=== PATIENT | male | born 1990 | race African-American/Black ===

== ENCOUNTER 2023-06-15 03:50 | Emergency (ER) | payer BC, SELFPAY ==
[2023-06-15 03:51] VITALS: BP 178/100
[2023-06-15 04:13] VITALS: BMI 40.6
[2023-06-15] MEDS: MAALOX 50 PO (04:18)
[2023-06-15 04:20] VITALS: BP 140/107
--- NOTE | 2023-06-15 04:26 | ED.GENMED ---
History of Present Illness
General
Chief Complaint: Cardiac Symptoms
Source: patient and previous hospital records (ED visit July 2018 for very similar chest pain complaint. Unremarkable ED evaluation at that time. Diagnosed with costochondritis.)
Exam Limitations: none
Time Seen by Provider: 06/15/23 04:01
Nursing documentation reviewed up to this point in time: agreed with
Travel History
Have you had any contact with someone who has COVID-19?: No
Do you have any symptoms of coronavirus? Fever > 100 degrees, chills, cough, shortness of breath, sore throat, loss of taste or smell, muscle aches, or headache?: No
History of Present Illness
History of Present Illness:
This is a 33-year-old gentleman with no significant past medical history save for GERD who complains of left upper chest pain that began 3 days ago. Left upper chest pain has been intermittent over the past 3 days, worse with movement of his left
arm, worse with movement of his trunk. He denies shortness of breath, pain is not worse with deep inspiration, no cough. Left upper chest pain has been persistent since yesterday evening and tonight seemed worse with intermittent palpitations
feeling like his heart was pounding and intermittently racing.
He denies heavy lifting nor injury. No recent URI. No leg pain or swelling. No recent lengthy travel.
Evaluated in this ED July 2018 with very similar left-sided chest pain, similarly worse with movement, movement of his left arm. Unremarkable ED evaluation at that time including EKG, laboratory studies, diagnosed with costochondritis.
He takes no medicines on a daily basis and has not been taking anything for chest discomfort.
Lifelong non-smoker.
No family history of coronary artery disease nor thromboembolism.
Past History
Past History
ED Past Medical History: GERD
ED Past Surgical History: None
Patient has exhibited threatening behavior?: No
Social History
Tobacco: Non-smoker
Alcohol: None
Drug: None
Personal: Single
Living: with family
Employment: Employed
Family History
Family History: Other (Noncontributory); Negative Early CAD or CAD
Phy Exam
Physical Exam
Physical Exam:
GENERAL: Alert , in no apparent distress. 33-year-old gentleman appears his stated age, awake and alert, pleasant, appears in no acute distress. Easily communicative.
EYE: anicteric
NECK: Supple, nontender, no meningismus, no significant adenopathy.
ENT: oral mucosa is moist. No rhinorrhea.
CARDIAC: Regular rate and rhythm. no murmur. Moderate tenderness to palpation left parasternal region. Palpation seems to exactly reproduce patient's pain complaint.
LUNGS: Clear breath sounds bilaterally, no acute respiratory distress, no wheezes/rales/rhonchi
ABDOMEN: Soft, nondistended, without focal tenderness, no r/g, normoactive BS.
NEUROLOGICAL: Alert and oriented x3, no focal neuro deficits. Gait is wade and steady.
SKIN: Warm and dry, normal color, skin intact. No rash.
MUSCULOSKELETAL: No C/C/E. peripheral pulses are full and equal b/l. No palpable tenderness.
PSYCH: Normal and appropriate interaction.
Scores
Heart Score for Chest Pain Patients
STEMI patient?: No
History: Slightly or Non-Suspicious
ECG: Normal
Age: </= 45 years
Risk Factors: No Risk Factors
Troponin: </= Normal Limit
Heart Score for Chest Pain Patients: 0
Heart Score Risk: 2.5% MACE over next 6 weeks
Course
Orders/Labs/Results
Orders:
Orders
06/15/23 03:55
Electrocardiogram (*1) Urgent
Reason for Study: Chest Pain
EKG- Treatment ONCE
06/15/23 04:10
Mag Hydrox/Al Hydrox/Simeth [Maalox] 30 ml Phenobarb/Hyoscy/Atropine/Scop [] 10 ml Viscous Lidocaine 2% [Xylocaine Viscous Cup] 10 ml PO NOW
04/22/24 04:12
Complete Blood Count/With Diff Urgent
Comprehensive Metabolic Panel Urgent
Troponin I Urgent
06/15/23 04:17
Mag Hydrox/Al Hydrox/Simeth [Maalox] 30 ml .ROUTE .STK-MED ONE
Phenobarb/Hyoscy/Atropine/Scop [] 10 ml .ROUTE .STK-MED ONE
Viscous Lidocaine 2% [Xylocaine Viscous Cup] 15 ml .ROUTE .STK-MED ONE
06/15/23 05:03
Ketorolac [Toradol] 30 mg IV NOW STA
Abnormal Lab Results
06/15/23
04:12
MCV 74.3 L fL
(80.0-94.0)
MCH 25.7 L pg
(27.0-31.0)
Abs Immat Gran (auto) 0.1 H 10^3/uL
(0-0.05)
Immature Gran % 0.6 H %
(0-0.5)
Chloride 108 H mmol/L
(98-107)
Glucose 101 H mg/dl
(70-99)
06/15/23 04:12
06/15/23 04:12
Vital Signs
Initial and Last Documented VS:
Initial Vital Signs
Temp Pulse Resp BP Pulse Ox
98 F 86 22 178/100 97
06/15/23 03:51 06/15/23 03:51 06/15/23 03:51 06/15/23 03:51 06/15/23 03:51
Last Documented Vital Signs
Temp Pulse Resp BP Pulse Ox
98 F 86 22 178/100 97
06/15/23 03:51 06/15/23 03:51 06/15/23 03:51 06/15/23 03:51 06/15/23 03:51
MDM/Problems Addressed
Differential Diagnosis Includes:
Concern for musculoskeletal chest pain/costochondritis, GERD, ACS is less likely. No risk factors for thromboembolism.
Patient noted to be moderately hypertensive, repeat blood pressure upon my evaluation has improved to 140/90. Similar hypertension noted 2019, then normalized upon recheck.
EKG is reassuring, unremarkable and unchanged from previous.
Will check labs including troponin.
Will trial a GI cocktail for potential GERD and if this is unsuccessful we will trial a dose of Toradol.
Chronic conditions affecting care: Other (GERD)
*Pulse Oximetry
Patient hypoxic: no
*EKG
Interpreted by ED Provider?: Yes
Interpretation: normal
Comparison EKG: no changes (Unchanged from previous July 2018)
Rate: normal
Rhythm: sinus
[place]: normal axis
Interval: normal interval
QRS Pattern: normal QRS
Ischemia: no ischemia
*[employer] Interpretation
Rate: normal
Interpretation: normal
Rhythm: sinus
*Critical Care Note
Total Time (30-74mins, 75-104mins- exclusive of procedures): Not Applicable
Update Note
Update Note:
06/15/2023 0605 AM
Labs are unremarkable including normal troponin. With ongoing/constant chest pain since 5 PM yesterday, negative troponin, unremarkable EKG, ACS is unlikely.
No improvement in pain after GI cocktail and patient continues to note increased left upper chest pain with movement of his left arm, rotation of his trunk which clearly appears musculoskeletal in nature thus a trial of IV Toradol given with
moderate improvement in pain.
I suspect left chest wall pain/costochondritis as cause for his chest discomfort.
Recommend a course of ibuprofen to be taken with food to protect the stomach. Local heat, avoid heavy lifting and prompt follow-up with PCP.
ED Attending Note
-
Portions of this chart may have been created with voice recognition software.� Occasional wrong word or��sound alike� substitutions may have occurred due to the inherent limitations of voice recognition software.
Discharge Plan
Departure
Patient Disposition: Home (Routine Discharge)
Date of Disposition: 06/15/23
Time of Disposition: 06:07
Patient with high blood pressure during this ER visit?: Yes
Condition: Good
Discharge Problem:
Acute costochondritis
Instructions: Costochondritis (DC), BLOOD PRESSURE
Prescriptions:
New
ibuprofen 800 mg tablet
800 mg PO QIDPRN PRN (Reason: pain, fever) Qty: 30 0RF
No Action
[id number] 1 DROP drops,suspension
4 drp otic (ear) TID Qty: 1 0RF
Referrals:
NONE,* [Family Provider] - Call in 1-3 days for appt
Interventions
Interventions:
*Risk Screen - Suicide Last Done: 06/15/23 04:14
*General Assessment Last Done: 06/15/23 04:14
*Neglect/Abuse Screening Last Done: 06/15/23 04:14
ED- Fall Risk Assessment Last Done: 06/15/23 05:22
*ED COVID-19 Vaccine History Last Done: 06/15/23 04:14
ED- Pulmonary Assessment Last Done: 06/15/23 05:22
ED- Cardiac Assessment Last Done: 06/15/23 05:22
Discharge Date and Time
Print Language: CHINESE
[2023-06-15 04:28] LABS: % Basophils 0.7 % (0-2); % Eosinophils 1.7 % (0-6); % Immature Granulocytes 0.6 % (0-0.5); % Lymphocytes 29.1 % (20.5-51.1); % Monocytes 7.3 % (1.7-9.3); % Neutrophils 60.6 % (42.2-75.2); Absolute Basophils 0.1 10^3/uL (0-0.2); Absolute Eosinophils 0.1 10^3/uL (0-0.7); Absolute Immature Granulocytes 0.1 10^3/uL (0-0.05); Absolute Lymphocytes 2.4 10^3/uL (1.2-3.4); Absolute Monocytes 0.6 10^3/uL (0.1-0.6); Absolute Neutrophils 5.1 10^3/uL (1.4-6.5); Hematocrit 40.1 % (39.0-52.0); Hemoglobin 13.9 g/dL (13.0-18.0); Mean Corp Hgb Conc. 34.7 g/dL (33.0-37.0); Mean Corpuscular Hgb 25.7 pg (27.0-31.0); Mean Corpuscular Volume 74.3 fL (80.0-94.0); Mean Platelet Volume 10.3 fL (7.4-10.4); Nucleated Red Blood Cells % 0 % (-); Platelet Count 323 10^3/uL (130-400); Red Cell Dist. Width 13.6 % (11.5-14.5); White Blood Cell Count 8.3 10^3/uL (4.8-10.8)
[2023-06-15 04:46] LABS: ALT (SGPT) 30 U/L (0-50); AST (SGOT) 23 U/L (17-59); Albumin 4.2 g/dl (3.5-5.0); Alkaline Phosphatase 96 U/L (38-126); Blood Urea Nitrogen 17 mg/dl (9-20); Calcium 9.7 mg/dl (8.4-10.2); Carbon Dioxide 25 mmol/L (22-30); Chloride 108 mmol/L (98-107); Estimated Creatinine Clearance > 125 ml/min; Glucose 101 mg/dl (70-99); Potassium 4.3 mmol/L (3.5-5.1); Sodium 138 mmol/L (135-145); Total Bilirubin 0.3 mg/dl (0.2-1.3); Total Protein 7.4 g/dl (6.3-8.2); eGFR > 60.00
[2023-06-15 04:57] LABS: Troponin I 0.032 ng/ml
[2023-06-15 05:00] VITALS: BP 138/101
[2023-06-15] MEDS: TORADOL 30 MG IV (05:28)
[2023-06-15 06:00] VITALS: BP 141/99
== END 2023-06-15 06:43 | disposition home or self-care (01) ==
LOC: EMR 03:50
PROVIDERS: EMERGENCY PHYSICIAN Emergency Medicine
DX: M94.0 Chondrocostal junction syndrome [Tietze] (principal); R00.2 Palpitations; R03.0 Elevated blood-pressure reading, without diagnosis of hypertension; K21.9 Gastro-esophageal reflux disease without esophagitis
CPT/HCPCS: 99284; 96374; 80053; 84484; 85025; 93005

== ENCOUNTER 2024-05-11 10:39 | Emergency (ER) | payer SELFPAY ==
[2024-05-11 10:40] VITALS: BMI 41.2
[2024-05-11 10:46] VITALS: BP 184/117
[2024-05-11 11:11] LABS: % Basophils 0.7 % (0-2); % Eosinophils 1.7 % (0-6); % Immature Granulocytes 0.7 % (0-0.5); % Lymphocytes 28.3 % (20.5-51.1); % Monocytes 9.1 % (1.7-9.3); % Neutrophils 59.5 % (42.2-75.2); Absolute Basophils 0.1 10^3/uL (0-0.2); Absolute Eosinophils 0.2 10^3/uL (0-0.7); Absolute Immature Granulocytes 0.1 10^3/uL (0-0.05); Absolute Lymphocytes 2.5 10^3/uL (1.2-3.4); Absolute Monocytes 0.8 10^3/uL (0.1-0.6); Absolute Neutrophils 5.2 10^3/uL (1.4-6.5); Hematocrit 42.3 % (39.0-52.0); Hemoglobin 14.7 g/dL (13.0-18.0); Mean Corp Hgb Conc. 34.8 g/dL (33.0-37.0); Mean Corpuscular Hgb 26.1 pg (27.0-31.0); Mean Platelet Volume 10.2 fL (7.4-10.4); Nucleated Red Blood Cells % 0 % (-); Platelet Count 320 10^3/uL (130-400); Red Blood Cell Count 5.64 10^6/uL (4.70-6.10); Red Cell Dist. Width 14.1 % (11.5-14.5); White Blood Cell Count 8.7 10^3/uL (4.8-10.8)
[2024-05-11 11:12] VITALS: BP 172/110
[2024-05-11 11:19] LABS: ALT (SGPT) 41 U/L (0-50); AST (SGOT) 23 U/L (17-59); Albumin 4.2 g/dl (3.5-5.0); Alkaline Phosphatase 90 U/L (38-126); Blood Urea Nitrogen 14 mg/dl (9-20); Calcium 9.7 mg/dl (8.4-10.2); Carbon Dioxide 25 mmol/L (22-30); Chloride 108 mmol/L (98-107); Estimated Creatinine Clearance > 125 ml/min; Glucose 117 mg/dl (70-99); Potassium 4.1 mmol/L (3.5-5.1); Sodium 140 mmol/L (135-145); Total Bilirubin 0.4 mg/dl (0.2-1.3); Total Protein 7.5 g/dl (6.3-8.2); eGFR > 60.00
[2024-05-11 11:26] VITALS: BP 176/126
--- NOTE | 2024-05-11 11:28 | ED.GENMED ---
History of Present Illness
General
Chief Complaint: Cardiac Symptoms
Source: patient
Exam Limitations: none
Time Seen by Provider: 05/11/24 11:16
Nursing documentation reviewed up to this point in time: agreed with
History of Present Illness
History of Present Illness:
This is a 34-year-old male with a past medical history of GERD who presents emergency department today with concerns of palpitations that woke him from sleep this morning. 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
this morning, staff at his job ordered food and ordered him a lemonade. Patient states that he drank a large lemonade and he later found out that the lemonade had a lot of caffeine added to it at [facility] [place]. Patient states he normally does not drink a
lot of caffeine. Patient states that he also felt jittery and felt slightly short of breath. Patient states that since then his symptoms have improved but he still feels a sensation of palpitations in his chest. He states that he had a transient
episode of chest pressure as well. He denies any history of alcohol or tobacco use. He has no personal or family history of cardiac disease. He denies any recent long distance travel, any pain or swelling in his legs. Patient states that his
brother had a similar episode to this a few days ago and was diagnosed with overactive thyroid. Patient denies nausea, vomiting, abdominal pain.
Past History
Past History
ED Past Medical History: GERD
ED Past Surgical History: None
Patient has exhibited threatening behavior?: No
Social History
Tobacco: Non-smoker
Alcohol: None
Drug: None
Personal: Single
Living: with family
Employment: Employed
Family History
Family History: Other (Noncontributory); Negative Early CAD or CAD
Review of Systems
Review of Systems
All Other Systems: ROS reviewed and negative except as documented in HPI and ROS
Phy Exam
Physical Exam
Physical Exam:
General: Patient is well appearing and in no acute distress; non-toxic
Skin: Warm and dry, no rashes or lesions
Head: Normocephalic, atraumatic
Eyes: Sclera non-icteric. EOMs intact.
Cardiac: Tachycardia noted otherwise regular rhythm, no murmurs, no tenderness to palpation over the external chest wall
Peripheral Vascular: No lower extremity swelling or edema
Pulm: Normal respiratory effort, no wheezes, rales, or rhonchi
Neuro: CN II-XII intact, no focal neurologic deficits.
Psychiatric: Appropriate mood and affect.
Course
Orders/Labs/Results
Orders:
Orders
05/11/24 10:41
Electrocardiogram (*1) Urgent
Reason for Study: Vertigo / Dizzy
Other Reason for Exam: chest discomfort
EKG- Treatment ONCE
05/11/24 10:50
Chest [CR Chest - 2 Views ] Urgent
Comment:
Reason For Exam: SOB
05/11/24 10:59
Complete Blood Count/With Diff Urgent
Comprehensive Metabolic Panel Urgent
Magnesium Urgent
Comment: ADD
TSH Reflex To Free T4 Urgent
Comment: ADD
Troponin I Urgent
05/11/24 11:43
0.9% Sodium Chloride 500 ml [Nss] 500 ml IV BOLUS
05/11/24 11:45
Add On- LAB Urgent
Tests Added?: TSH reflex to T4
05/11/24 11:46
Add On- LAB Urgent
Tests Added?: magnesium
05/11/24 11:50
D-Dimer Urgent
05/11/24 11:59
0.9% Sodium Chloride 1000 ml [Nss] 500 ml IV BOLUS
Abnormal Lab Results
05/11/24
10:59
MCV 75.0 L fL
(80.0-94.0)
MCH 26.1 L pg
(27.0-31.0)
Abs Immat Gran (auto) 0.1 H 10^3/uL
(0-0.05)
Absolute Monos (auto) 0.8 H 10^3/uL
(0.1-0.6)
Immature Gran % 0.7 H %
(0-0.5)
Chloride 108 H mmol/L
(98-107)
Glucose 117 H mg/dl
(70-99)
05/11/24 10:59
05/11/24 10:59
Vital Signs
Pulse: 92
Blood pressure: 150/100
Initial and Last Documented VS:
Initial Vital Signs
Temp Pulse Resp BP Pulse Ox
98.5 F 102 18 184/117 97
05/11/24 10:46 05/11/24 10:46 05/11/24 10:46 05/11/24 10:46 05/11/24 10:46
Last Documented Vital Signs
Temp Pulse Resp BP Pulse Ox
98.5 F 92 17 150/100 97
05/11/24 10:46 05/11/24 15:44 05/11/24 13:00 05/11/24 15:44 05/11/24 13:00
MDM/Problems Addressed
Differential Diagnosis Includes:
ddx include caffeine side affects, atrial tachycardia, afib, electrolyte derangement, pneumonia, ACS
MDM/Problems Addressed:
34-year-old male presents emergency department today with concerns of palpitations. Woke him up from sleep today, symptoms started few hours after taking a caffeinated drink. He also has associated intermittent shortness of breath. States that
his symptoms have largely improved but he still feels a sensation of palpitations. He was sent for chest x-ray which reveals no acute cardiopulmonary process. His troponin was undetectable. His TSH was normal. His electrolytes are normal. He is
not anemic. His D-dimer is normal. Suspect tachycardia likely related to large dose of caffeine after his production shift supervisor. Patient was given IV fluids which subsequently brought on his heart rate and his blood pressure did come back down a bit.
Patient is no longer feeling a sensation of palpitations. In light of prolonged palpitations episode earlier today, I did recommend patient following up with a learning engineer for potential Holter monitoring. Patient states that he has no history of
high blood pressure however on review of his visits here it appears that patient is always hypertensive during his emergency department visits. We did discuss how it is important that blood pressure needs to be manage I did discuss that patient
should see his primary care provider regarding this. Patient expressed understanding. Patient stable for discharge.
Chronic conditions affecting care:
GERD
*Pulse Oximetry
Patient hypoxic: no
*EKG
Interpreted by ED Provider?: Yes
EKG Intrepretation Date: 05/11/24
Interpretation: abnormal
Comparison EKG: no changes
Heart Rate: 104
Rate: tachycardiac
Rhythm: sinus
[place]: normal axis
*Critical Care Note
Total Time (30-74mins, 75-104mins- exclusive of procedures): Not Applicable
Data Reviewed
Review of Other/Old Records Reveals: Records (Reviewed ER physician documentation from 06/15/2023 patient is seen for acute costochondritis)
Source: patient
Patient Management
Escalation/DeEscalation of care consider admission/obs:
Admit not indicated, patient stable for discharge
ED Attending Note
-
Portions of this chart may have been created with voice recognition software.� Occasional wrong word or��sound alike� substitutions may have occurred due to the inherent limitations of voice recognition software.
Discharge Plan
Departure
Patient Disposition: Home (Routine Discharge)
Date of Disposition: 05/11/24
Time of Disposition: 13:00
Patient with high blood pressure during this ER visit?: Yes
Condition: Good
Discharge Problem:
Sinus tachycardia, Heart palpitations
Instructions: Sinus Tachycardia (DC), BLOOD PRESSURE
Prescriptions:
No Action
[id number] 1 DROP drops,suspension
4 drp otic (ear) TID Qty: 1 0RF
ibuprofen 800 mg tablet
800 mg PO QIDPRN PRN (Reason: pain, fever) Qty: 30 0RF
Referrals:
Roberto Poe MD [Active] - Call in 1-3 days for appt
UNKNOWN - PT DOES,NOT KNOW [Family Provider] -
Activity Restrictions/Additional Instructions:
Please follow-up with your primary care provider regarding your elevated blood pressure today. If this remains elevated, you may need to be started on a blood pressure medication.
PLEASE RETURN TO THE EMERGENCY DEPARTMENT SHOULD YOU DEVELOP CHEST PAIN, SHORTNESS OF BREATH, LIGHTHEADEDNESS, DIZZINESS, LOSS OF CONSCIOUSNESS, OR ANY OTHER SIGNS OR SYMPTOMS WORRISOME TO YOU.
Please call attached number to schedule follow-up appointment cardiology to address your prolonged episode of palpitations.
Interventions
Interventions:
*Risk Screen - Suicide Last Done: 05/11/24 10:46
*General Assessment Last Done: 05/11/24 10:46
*Neglect/Abuse Screening Last Done: 05/11/24 10:46
*ED- Fall Risk Assessment Last Done: 05/11/24 11:10
*Nursing Disposition Last Done: 05/11/24 13:04
ED- Pulmonary Assessment Last Done: 05/11/24 11:10
ED- Cardiac Assessment Last Done: 05/11/24 11:10
Discharge Date and Time
Discharge Date/Time: 05/11/24 13:11
Print Language: TELUGU
[2024-05-11 11:30] LABS: Troponin I 0.014 ng/ml
[2024-05-11 11:41] VITALS: BP 180/126
[2024-05-11] MEDS: NSS 500 IV ×2 (11:52→12:24)
[2024-05-11 12:00] VITALS: BP 151/105
[2024-05-11 12:30] LABS: D-Dimer 0.33 ug/mlFEU (0.00-0.50)
[2024-05-11 12:46] VITALS: BP 153/103
[2024-05-11 13:05] LABS: Magnesium 1.8 mg/dl (1.6-2.3)
[2024-05-11 13:42] LABS: TSH Reflex To Free T4 4.58 uIU/ml (0.47-4.68)
== END 2024-05-11 13:11 | disposition home or self-care (01) ==
LOC: EMR 10:39
PROVIDERS: Physician Assistant; EMERGENCY PHYSICIAN Emergency Medicine
DX: R00.0 Tachycardia, unspecified (principal); R00.2 Palpitations; R07.89 Other chest pain; K21.9 Gastro-esophageal reflux disease without esophagitis; R03.0 Elevated blood-pressure reading, without diagnosis of hypertension
CPT/HCPCS: 99285; 96360; 71046; 80053; 83735; 84443; 84484; 85025; 85379; 93005

== ENCOUNTER 2024-08-25 02:28 | Emergency (ER) | payer SELFPAY ==
[2024-08-25 02:43] VITALS: BP 160/113
--- NOTE | 2024-08-25 02:58 | ED.GENMED ---
History of Present Illness
General
Chief Complaint: Breathing Problem
Source: patient
Exam Limitations: none
Time Seen by Provider: 08/25/24 02:49
Nursing documentation reviewed up to this point in time: agreed with
History of Present Illness
History of Present Illness:
This is a 34-year-old gentleman who has history of GERD, takes no medicines on a daily basis who presents with 2-week history of dry hacking cough, mild shortness of breath, mild nasal congestion. He has not had a fever. No chest pain, no nausea
nor vomiting, no sore throat. No known close contacts with similar symptoms. No recent travel.
He had a telehealth visit last week, August 17, and was prescribed Z-Jonathan as well as 5-day course of prednisone 50 mg daily. Despite completing these 3 days ago he has had no relief of symptoms.
COVID test was negative last week.
No improvement in cough with Mucinex, Robitussin.
He admits to cough throughout the day but worse at nighttime.
Past History
Past History
ED Past Medical History: GERD
ED Past Surgical History: None
Patient has exhibited threatening behavior?: No
Social History
Tobacco: Non-smoker
Alcohol: None
Drug: None
Personal: Single
Living: with family
Employment: Employed
Family History
Family History: Other (Noncontributory); Negative Early CAD or CAD
Phy Exam
Physical Exam
Physical Exam:
GENERAL: 34-year-old overweight gentleman appears his stated age. Bright and alert, pleasant, appears in no acute distress. Frequent hacking nonproductive cough is noted. Able to speak in full sentences. No respiratory distress. Sitting upright
typing on his laptop computer.
EYE: anicteric
NECK: Supple, nontender, no meningismus, no significant adenopathy. No JVD.
ENT: posterior pharynx is without injection, scant clear postnasal drip is noted, oral mucosa is moist. TM clear b/l, nares patent.
CARDIAC: Regular rate and rhythm. no murmur.
LUNGS: Clear breath sounds bilaterally, no acute respiratory distress, no wheezes/rales/rhonchi. Frequent dry hacking cough is noted.
ABDOMEN: Soft, nondistended, without focal tenderness
NEUROLOGICAL: Alert and oriented x3, no focal neuro deficits. Gait is steady.
SKIN: Warm and dry, normal color, skin intact. No rash.
MUSCULOSKELETAL: No C/C/E. peripheral pulses are full and equal b/l. No palpable tenderness.
PSYCH: Normal and appropriate interaction.
Scores
Heart Failure Risk
Heart Failure Risk Score: Not Applicable
Course
Orders/Labs/Results
Orders:
Orders
08/25/24 02:50
CR Chest - 2 Views Urgent
Comment:
Reason For Exam: cough, SOB x 2 weeks
08/25/24 02:58
Benzonatate [Tessalon Perles] 200 mg PO NOW STA
Ipratropium/Albuterol Sulfate [Duoneb] 3 ml INH R NOW STA
Vital Signs
Initial and Last Documented VS:
Initial Vital Signs
Temp Pulse Resp BP Pulse Ox
99 F 86 20 160/11 98
08/25/24 02:43 08/25/24 02:43 08/25/24 02:43 08/25/24 02:43 08/25/24 02:43
Last Documented Vital Signs
Temp Pulse Resp BP Pulse Ox
99 F 86 20 148/90 98
08/25/24 02:43 08/25/24 02:43 08/25/24 02:43 08/25/24 03:13 08/25/24 03:15
MDM/Problems Addressed
Differential Diagnosis Includes:
Acute URI/bronchitis, concern for occult pneumonia, reactive airway disease.
Nothing in history nor exam to suggest CHF.
No complaints of chest pain, no history of CAD nor history of thromboembolism.
Exacerbation of GERD is less likely especially with prolonged symptoms.
COVID testing -1-week ago. No indication to repeat.
Will check chest x-ray and will trial DuoNeb nebulizer.
Will give a dose of Tessalon for cough as well.
Patient noted to be moderately hypertensive. Similar elevated blood pressure readings on previous ED visits. Patient states his blood pressure is generally normal upon recheck at PCP.
Previous labs reviewed from April of this year as well as May 2023. All unremarkable.
At this point no indication for laboratory studies.
*Radiology
Radiology exam reviewed: preliminary read by ED provider (Chest x-ray is unremarkable. Clear lung pineda. Normal heart size. Unchanged from previous April 2024.)
*Pulse Oximetry
SaO2: 98
Oxygen Mode of Delivery: Room air
Patient hypoxic: no
*Critical Care Note
Total Time (30-74mins, 75-104mins- exclusive of procedures): Not Applicable
Update Note
Update Note:
03:50
Cough is markedly improved after nebulizer treatment and a dose of Tessalon.
He does continue with intermittent brief cough but no shortness of breath and lungs remain clear to auscultation.
Chest x-ray is unremarkable. Clear lung pineda.
At this point no indication for further antibiotic nor additional prednisone.
Will prescribe Tessalon pearls for as needed cough as well as albuterol inhaler.
Discussed importance of staying well-hydrated on a daily basis.
Elevate head of bed as well as utilization of humidifier versus vaporizer at nighttime to assist with cough suppression.
Prompt follow-up with PCP for recheck.
ED Attending Note
-
Portions of this chart may have been created with voice recognition software.� Occasional wrong word or��sound alike� substitutions may have occurred due to the inherent limitations of voice recognition software.
Discharge Plan
Departure
Patient Disposition: Home (Routine Discharge)
Date of Disposition: 08/25/24
Time of Disposition: 03:50
Patient with high blood pressure during this ER visit?: Yes
Condition: Good
Discharge Problem:
Acute bronchitis
Instructions: Acute Bronchitis, Adult (DC), Cough, Adult (DC), BLOOD PRESSURE
Prescriptions:
New
benzonatate 200 mg capsule
200 mg PO TID PRN (Reason: cough) Qty: 30 0RF
albuterol sulfate 90 mcg/actuation aerosol powdr breath activated
2 inh inhalation QIDPRN PRN (Reason: shortness of breath or cough) Qty: 1 0RF
No Action
[id number]-[id number] 1 DROP drops,suspension
4 drp otic (ear) TID Qty: 1 0RF
ibuprofen 800 mg tablet
800 mg PO QIDPRN PRN (Reason: pain, fever) Qty: 30 0RF
Referrals:
UNKNOWN - PT DOES,NOT KNOW [Family Provider]
Activity Restrictions/Additional Instructions:
Stay well-hydrated on a daily basis.
Elevate head of bed at nighttime as well as use cool mist versus steam vaporizer at nighttime to help with cough.
Follow-up with your primary care physician next week for recheck.
Interventions
Interventions:
*Risk Screen - Suicide Last Done: 08/25/24 02:43
*General Assessment Last Done: 08/25/24 02:43
*Neglect/Abuse Screening Last Done: 08/25/24 02:43
*ED- Fall Risk Assessment Last Done: 08/25/24 02:43
*ED COVID-19 Vaccine History Last Done: 08/25/24 03:14
ED- Cardiac Assessment Last Done: 08/25/24 03:14
ED- Pulmonary Assessment Last Done: 08/25/24 03:14
Discharge Date and Time
Print Language: MICRONESIAN
[2024-08-25 03:10] VITALS: BMI 43.7
[2024-08-25 03:13] VITALS: BP 148/90
[2024-08-25] MEDS: TESSALON PERLES 200 MG PO (03:18)
[2024-08-25] MEDS: DUONEB 3 ML INH (03:19)
== END 2024-08-25 04:03 | disposition home or self-care (01) ==
LOC: EMR 02:28
PROVIDERS: EMERGENCY PHYSICIAN Emergency Medicine
DX: J20.9 Acute bronchitis, unspecified (principal); K21.9 Gastro-esophageal reflux disease without esophagitis; R03.0 Elevated blood-pressure reading, without diagnosis of hypertension
CPT/HCPCS: 99283; 94640; 71046